=== PATIENT | male | born 1995 | race Two or more races ===

== ENCOUNTER 2025-10-18 12:54 | Inpatient (IN) | payer OTHER ==
[~2025-10-18] VITALS: Ht 160 cm; Wt 72.6 kg
[2025-10-18] MEDS ORDERED: PIPERACILLIN/TAZOBACTAM SODIUM 3.375 GM in 0.9 % SODIUM CHLORIDE 100 ML IV SCH (13:08)
--- NOTE | 2025-10-18 13:12 | NUR ---
PACIENTE ALERTA Y ORIENTADO LLEGA EN AMBULANCIA, EL MISMO REFERIDO DE CRUCERO POR DOLOR ABDOMINAL Y R/O APENDICITIS. SE MIDE V/S Y SE UBICA PACIENTE
[2025-10-18] MEDS ORDERED: FAMOTIDINE/PF 20 MG/2 ML VIAL IV PUSH ONE (13:15)
[2025-10-18] MEDS ORDERED: MORPHINE SULFATE 4 MG/ML VIAL IV PRN (13:15)
[2025-10-18] MEDS ORDERED: ONDANSETRON HCL 4 MG in DEXTROSE 5 % IN WATER 50 ML IV PRN (13:15)
[2025-10-18] MEDS ORDERED: 0.9 % SODIUM CHLORIDE 1,000 ML IV ONE (13:15)
[2025-10-18] MEDS ORDERED: DIPHENHYDRAMINE HCL 50 MG/ML VIAL 1ML IV ONE (13:30)
[2025-10-18] MEDS ORDERED: METHYLPREDNISOLONE SOD SUCC 125 MG VIAL IV ONE (13:30)
[2025-10-18] MEDS ORDERED: PIPERACILLIN/TAZOBACTAM SODIUM 3.375 GM VIAL IV ONE ×2 (15:28→23:31)
[2025-10-18] MEDS ORDERED: METHYLPREDNISOLONE SOD SUCC 125 MG VIAL ONE (15:28)
[2025-10-18] MEDS ORDERED: DIPHENHYDRAMINE HCL 50 MG/ML VIAL 1ML ONE (15:28)
[2025-10-18] MEDS ORDERED: ONDANSETRON HCL 2 MG/ML VIAL ONE (15:28)
[2025-10-18] MEDS ORDERED: FAMOTIDINE/PF 20 MG/2 ML VIAL ONE (15:29)
--- NOTE | 2025-10-18 16:56 | NUR ---
PACIENTE EVALUADO POR QUIEN ORDENA TRATAMIENTO MEDICO, RN COSMES LE ORIENTA A PACIENTE SOBRE EL MISMO Y REFIERE ENTNEDER, LE COLECTA MUESTAS, LE CANALIZA Y LE ADMINSITRA MEDICAMENTOS BAJO MEDIDAS ASETPICAS.
[2025-10-18 17:56] LABS: BASO % 0.1 % (0.1-1.2); EOS # 0.01 (0.04-0.54); EOS % 0.1 % (0.7-7.0); LYMPH # 2.55 (1.18-3.74); LYMPH % 17.2 % (19.3-53.1); MEAN PLATELET VOLUME 10.60 fl (9.4-12.4); MONO # 1.20 (0.24-0.82); MONO % 8.1 % (4.7-12.5); NEUT # 11.01 (1.56-6.13); NEUT % 74.2 % (34.0-71.1); RED CELL DISTRIBUTION WIDTH 11.8 % (11.6-14.4)
[2025-10-18 18:20] LABS: INR 1.04
[2025-10-18 18:25] LABS: ALT/SGPT 16.0 U/L (12-78); AST/SGOT 9.0 U/L (15-37); BILIRUBIN TOTAL 0.73 mg/dL (0.3-1.2); BUN CREA RATIO 8.0 (7.0-25.0); CREATININE SERUM 1.06 mg/dL (0.70-1.30); GFR 82.03; GLOBULINA 4.0 G/DL (2.4-3.5); GLUCOSE FASTING 102.0 mg/dL (65-100); OSMOLALITY SERUM 284.0 MOSM/KG (275-295)
[2025-10-18 21:09] LABS: URINE APPEARANCE Clear; URINE BILIRRUBIN Negative (NEGATIVE); URINE BLOOD Negative; URINE COLOR Yellow; URINE GLUCOSE Negative (NEGATIVE); URINE KETONE Negative (NEGATIVE); URINE LEUKOCYTE Negative; URINE NITRATE Negative; URINE PROTEIN Negative (NEGATIVE); URINE UROBILINOGEN 0.2 E.U./dl
[2025-10-18 21:14] LABS: URINE WBC 2.7 uL (0.0-23.2)
[2025-10-18 22:23] LABS: URINE BACTERIA 1.1 uL (0.0-1933); URINE CAST 0.00 uL (0.0-1.40); URINE EPITHELIAL CELLS 0.6 uL (0.0-38.8); URINE RBC 0.9 uL (0.0-20.8)
[2025-10-19] MEDS ORDERED: PIPERACILLIN/TAZOBACTAM SODIUM 3.375 GM VIAL IV ONE ×2 (06:24→10:32)
[2025-10-19] MEDS ORDERED: SUGAMMADEX SODIUM 200 MG/2 ML VIAL IV ONE (13:45)
[2025-10-19 16:00] VITALS: BP 117/72; O2SAT 98
[2025-10-19 19:52] LABS: INR 1.04
[2025-10-20] VITALS: BP 107/64; O2SAT 98
[2025-10-20 06:20] LABS: BASO % 0.1 % (0.1-1.2); EOS # 0.04 (0.04-0.54); EOS % 0.4 % (0.7-7.0); LYMPH # 3.09 (1.18-3.74); LYMPH % 29.3 % (19.3-53.1); MEAN PLATELET VOLUME 10.90 fl (9.4-12.4); MONO # 0.86 (0.24-0.82); MONO % 8.2 % (4.7-12.5); NEUT # 6.51 (1.56-6.13); NEUT % 61.6 % (34.0-71.1); RED CELL DISTRIBUTION WIDTH 11.9 % (11.6-14.4)
[2025-10-20] MEDS ORDERED: FAMOTIDINE/PF 20 MG in 0.9 % SODIUM CHLORIDE 100 ML IV SCH (09:00)
[2025-10-20 10:14] VITALS: BP 115/74; O2SAT 100
== END 2025-10-20 14:53 | disposition home or self-care (01) | DRG 399 ==
LOC: ER 12:54 → SURH 10-19 07:40 → O/R 10-19 07:40 → SURH 10-19 15:32
PROVIDERS: General Practice; Student in an Organized Health Care Education/Training Program; ADMIT Student in an Organized Health Care Education/Training Program; ATTEND Student in an Organized Health Care Education/Training Program
PROC: BW21YZZ Computerized Tomography (CT Scan) of Abdomen and Pelvis using Other Contrast (ICD-10-PCS; 2025-10-18)
PROC: BW21ZZZ Computerized Tomography (CT Scan) of Abdomen and Pelvis (ICD-10-PCS; 2025-10-18)
PROC: 0DTJ4ZZ Resection of Appendix, Percutaneous Endoscopic Approach (ICD-10-PCS; principal; 2025-10-19 17:15)
DX: K35.890 Other acute appendicitis without perforation or gangrene (principal); R10.31 Right lower quadrant pain; K35.80 Unspecified acute appendicitis